=== PATIENT | male | born 2005 | race Caucasian/White ===

== ENCOUNTER 2024-09-24 22:19 | Emergency (ER) | payer OTHER, SELFPAY ==
--- NOTE | ~2024-09-24 | XR_ITS ---
CLINICAL HISTORY: lac 3 view left foot Comparison: None provided Findings: Bones intact. No dislocations. No significant loss of joint space, osteophytes, or erosions. No ankle effusion. No radiopaque foreign body. IMPRESSION: 1. No acute findings. This document has been electronically signed by: Tadeo Long MD, PHD on 09/25/2024 00:24:04
[2024-09-24 22:47] VITALS: BP 133/60; PULSE 74; RESP 16; TEMP 36.2; O2SAT 100; BMI 19.8
--- NOTE | 2024-09-25 03:04 | ED_ITS ---
HPI - Wound/Laceration General Chief Complaint: Wound/Laceration Stated Complaint: left foot laceration Time Seen by Provider: 09/25/24 02:35 Source: patient Mode of arrival: ambulatory Limitations: no limitations History of Present Illness ED Provider: Dr. Rachael Cardenas HPI narrative: Patient comes to the emergency room complaining of a laceration to the dorsal aspect of the left foot. Patient has a video with him. Patient was at work, patient was carrying a crate and did not realize that there was a knife in it. The knife fell of the crate and fell into the patient's foot. Patient states that 2 years ago he had a laceration in his hand, went to [facility] and they gave him his Tdap immunization. Patient up-to-date. Patient now complaining of localized pain. No other injuries. Related Data Allergies Allergy/AdvReac Type Severity Reaction Status Date / Time No Known Allergies Allergy Verified 09/24/24 22:55 Review of Systems Review of Systems: Constitutional : No Weight loss, No Fever, No Chills, No Night Sweats, No Fatigue, No Malaise ENT/Mouth : No Hearing loss, No Ear Pain, No Nasal Congestion, No Sinus Pain, No Hoarseness, No sore throat, No Rhinorrhea, No Swallowing Difficulty Eyes: No Eye Pain, No Swelling, No Redness, No Foreign Body, No Discharge, No Vision Changes Cardiovascular : No Chest Pain, No SOB, No Dyspnea on Exertion, No Orthopnea, No Edema, No Palpitations Respiratory : No Cough, No Sputum, No Wheezing, No Smoke Exposure, No Dyspnea Gastrointestinal : No Nausea, No Vomiting, No Diarrhea, No Constipation, No abdominal Pain, No Hematochezia, No Melena Genitourinary : no irregular bleeding, No Dysuria, No Urinary Frequency, No Hematuria, No Urinary Incontinence, No Urgency, No Flank Pain, No Urinary Flow Changes, No Hesitancy Musculoskeletal : No joint pain, No Myalgias, No Joint Swelling Skin : Laceration to the dorsum of the foot Neuro : No Weakness, No Numbness, No Paresthesias, No Loss of Consciousness, No Dizziness, No Headache Psych : No Anxiety/Panic, No Depression, No SI/HI/AH/VH, No Social Issues, Heme/Lymph: No Bruising, No Bleeding,No Lymphadenopathy Endocrine : No Polyuria, No Polydipsia, No Temperature Intolerance PMFSH Social History Social History Advance Directives: No Physical Exam Exam: Exam: Appearance: Alert. Oriented X3. No acute distress. Eyes: Pupils equal, round and reactive to light. ENT: Pharynx normal. Neck: Normal inspection. Neck supple. No lymph nodes noted. No crepitus CVS: Normal heart rate and rhythm. Pulses normal. Normal S1 and S2 Respiratory: No respiratory distress. Breath sounds normal. No Wheezing. No rales Abdomen: Soft and nontender. No rigidity. No distention. Skin: Skin warm and dry. Normal skin color. Normal skin turgor. Extremities: No lower extremity edema. No Lacerations. No Rash patient is able to wiggle all of his toes. Exam done under a bloodless field. No tendons visualized. Patient able to flex and extend toes Neuro: Oriented X 3. No motor deficit. No sensory deficit. Moving all extremities. No slurred speech. CN 2 through 12 grossly intact Psych: calm, cooperative, normal affect Vital Signs: Vital Signs: Last Vital Signs Temp 97.2 F 09/24/24 22:47 Pulse 74 09/24/24 22:47 Resp 16 09/24/24 22:47 BP 133/60 09/24/24 22:47 Pulse Ox 100 09/24/24 22:47 O2 Del Method Room Air 09/24/24 22:47 BMI result Body Mass Index 19.8 Course Course Course Narrative: Patient complaining of a laceration to the dorsum of the left foot between the 3rd and 4th toe Medical Decision Making Medical Decision Making MDM Narrative: Patient needed 3 stitches. Patient up-to-date with his immunizations Procedures Laceration Laceration 1: Site: lower extremity Size (cm): 1.5 Description: linear Depth: simple, single layer Local Anesthetic: lidocaine 1% Amount of anesthesia used (mL): 4 Pre-repair: wound explored Skin layer closed with: nylon Size (cm): 3-0 Number of sutures: 3 Technique: simple, interrupted Discharge Plan Discharge Clinical Impression: Laceration Patient Disposition: Home, Self-Care Instructions: Laceration (ED), Care For Your Stitches (ED) Additional Instructions: Please follow-up with your primary care physician tomorrow. If you have any worsening or new symptoms, please return to the emergency room or call 911 Stand Alone Forms: Work/School Release Print Language: Prydeinig
[2024-09-25 03:11] VITALS: BP 112/80; PULSE 57; RESP 18; TEMP 36.9; O2SAT 97
[2024-09-25 03:13] VITALS: BP 112/80; PULSE 57; RESP 18; TEMP 36.9; O2SAT 97
[2024-09-25] MEDS: Lidocaine HCl 1 % 20 ML VIAL 5 ML INFILTRATI (03:13)
== END 2024-09-25 03:13 | disposition home or self-care (01) ==
PROVIDERS: Emergency Provider Emergency Medicine
DX: S91.312A Laceration without foreign body, left foot, initial encounter (principal); W26.0XXA Contact with knife, initial encounter; Y93.89 Activity, other specified; Y92.9 Unspecified place or not applicable; Y99.9 Unspecified external cause status
CPT/HCPCS: 12001; 73630; 99283; 99284; J2003

== ENCOUNTER → 2024-09-24 22:54 | Outpatient (BNV) | payer OTHER, SELFPAY | PROVIDERS: Visit Provider General Practice | DX: S91.312A Laceration without foreign body, left foot, initial encounter (principal); W26.0XXA Contact with knife, initial encounter | CPT/HCPCS: 73630 ==